=== PATIENT | female | born 1980 | race Two or more races ===

== ENCOUNTER 2020-10-09 04:41 | Day surgery (SDC) | payer OTHER ==
[2020-10-07 16:42] VITALS: BMI 21.4
[2020-10-09 10:45] VITALS: TEMP 97.4
[2020-10-09 11:27] VITALS: BP 106/68; PULSE 55
== END 2020-10-09 11:45 | disposition home or self-care (01) ==
LOC: JASU-ENDO 04:41
PROVIDERS: ATTEND Internal Medicine Gastroenterology
PROC: 0DB78ZX Excision of Stomach, Pylorus, Via Natural or Artificial Opening Endoscopic, Diagnostic (ICD-10-PCS; 2020-10-09)
PROC: 0DBH8ZX Excision of Cecum, Via Natural or Artificial Opening Endoscopic, Diagnostic (ICD-10-PCS; principal; 2020-10-09 10:45)
DX: D12.0 Benign neoplasm of cecum (principal); Z86.010 Personal history of colon polyps; R63.4 Abnormal weight loss; Z68.21 Body mass index [BMI] 21.0-21.9, adult; R10.9 Unspecified abdominal pain
CPT/HCPCS: 81025; 88305-TC; 88342-TC

== ENCOUNTER 2020-11-24 15:29 | Emergency (ER) | payer OTHER ==
[2020-11-24 15:47] VITALS: BP 107/74; PULSE 65; TEMP 98.5; BMI 21.1
== END 2020-11-24 18:55 | disposition home or self-care (01) ==
LOC: JER 15:29
DX: R53.1 Weakness (principal)
CPT/HCPCS: 82962; 99283-25

== ENCOUNTER 2021-12-02 10:02 | Emergency (ER) | payer OTHER ==
[2021-12-02 10:19] VITALS: BP 94/62; PULSE 67; TEMP 97.8; BMI 20.8
[2021-12-02 10:51] LABS: HEMATOCRIT 34.1 % (32.4-45.2); HEMOGLOBIN 11.9 G/dL (10.7-15.3); MCH 32.9 pg (25.7-33.7); MCHC 34.8 g/dl (32.0-36.0); MEAN CELL VOLUME 94.7 fl (80-96); MEAN PLT VOLUME 8.1 fl (7.5-11.1); PLATELET COUNT 215.7 10^3/uL (134-434); RDW 13.5 % (11.6-15.6); WHITE BLOOD COUNT 3.7 10^3/uL (4.0-10.8)
[2021-12-02 11:05] LABS: BILIRUBIN,TOTAL 0.6 mg/dl (0.2-1); CALCIUM 9.2 mg/dl (8.5-10); CREATININE 0.9 mg/dl (0.55-1.3); TOT PROT 6.8 g/dl (6.4-8.2)
== END 2021-12-02 12:43 | disposition home or self-care (01) ==
LOC: FER 10:02
DX: R53.83 Other fatigue (principal); Z20.822 Contact with and (suspected) exposure to COVID-19
CPT/HCPCS: 0241U-QW; 36415; 80053; 81003; 84703; 85027; 99283-25

== ENCOUNTER 2021-12-16 23:21 | Emergency (ER) | payer OTHER ==
[2021-12-16 23:32] VITALS: PULSE 60; TEMP 98.2; BMI 20.3
[2021-12-16] MEDS ORDERED: SODIUM CHLORIDE 1,000 ML IV STA (23:46)
[2021-12-17 00:54] LABS: PH,URINE 6.5 (5.0-8.0); URINE APPEARANCE CLEAR; URINE BILIRUBIN NEGATIVE (NEGATIVE); URINE COLOR YELLOW; URINE GLUCOSE (UA) NEGATIVE (NEGATIVE); URINE KETONE NEGATIVE (NEGATIVE); URINE LEUK ESTERASE NEGATIVE (NEGATIVE); URINE NITRITE NEGATIVE (NEGATIVE); URINE PROTEIN NEGATIVE (NEGATIVE)
[2021-12-17 00:56] LABS: BASO % 0.6 % (0-2.0); EOS % 3.1 % (0-4.5); HEMATOCRIT 32.6 % (32.4-45.2); LYMPH % 47.5 % (8-40); MCH 31.4 pg (25.7-33.7); MCHC 33.9 g/dl (32.0-36.0); MEAN CELL VOLUME 92.8 fl (80-96); MONO % 10.4 % (3.8-10.2); NEUT % 38.4 % (42.8-82.8); PLATELET COUNT 208 10^3/uL (134-434); RBC 3.51 M/mm3 (3.60-5.2); RDW 12.4 % (11.6-15.6); WHITE BLOOD COUNT 5.1 K/mm3 (4.0-10.0)
[2021-12-17 01:14] LABS: ALBUMIN 3.6 g/dl (3.4-5.0); BLOOD UREA NITROGEN 11.8 mg/dL (7-18)
[2021-12-17 01:17] LABS: CREATININE 0.7 mg/dL (0.55-1.3)
[2021-12-17 01:19] LABS: TOT PROT 6.5 g/dl (6.4-8.2)
[2021-12-17 01:24] VITALS: BP 96/65; RESP 16
[2021-12-17 02:20] LABS: BILIRUBIN,TOTAL 0.5 mg/dL (0.2-1)
== END 2021-12-17 01:56 | disposition home or self-care (01) ==
LOC: FER 23:21
PROC: 3E0337Z Introduction of Electrolytic and Water Balance Substance into Peripheral Vein, Percutaneous Approach (ICD-10-PCS; principal; 2021-12-16)
DX: K22.0 Achalasia of cardia (principal)
CPT/HCPCS: 36415; 80053; 81003; 85025; 99284-25

== ENCOUNTER 2021-12-24 04:04 | Emergency (ER) | payer OTHER ==
[2021-12-24 04:10] VITALS: BP 101/68; PULSE 62; RESP 16; TEMP 97.9
[2021-12-24] MEDS ORDERED: FAMOTIDINE 20 MG TABLET PO ONE (04:21)
[2021-12-24] MEDS ORDERED: MAG HYDROX/AL HYDROX/SIMETH -MYLANTA- ORAL SUSPENSION PO ONE (04:21)
[2021-12-24] MEDS ORDERED: FAMOTIDINE 20 MG TABLET ONE (04:48)
[2021-12-24] MEDS ORDERED: MAG HYDROX/AL HYDROX/SIMETH 30 ML UNIT-DOSE CUP ONE (04:48)
[2021-12-24 06:00] LABS: BASO % 0.5 % (0-2.0); EOS % 3.3 % (0-4.5); HEMATOCRIT 31.7 % (32.4-45.2); HEMOGLOBIN 10.7 GM/dL (10.7-15.3); LYMPH % 44.7 % (8-40); MCH 31.7 pg (25.7-33.7); MCHC 33.8 g/dl (32.0-36.0); MEAN CELL VOLUME 93.7 fl (80-96); MEAN PLT VOLUME 8.7 fl (7.5-11.1); MONO % 9.9 % (3.8-10.2); NEUT % 41.6 % (42.8-82.8); PLATELET COUNT 166 10^3/uL (134-434); RBC 3.39 M/mm3 (3.60-5.2); RDW 12.2 % (11.6-15.6); WHITE BLOOD COUNT 4.6 K/mm3 (4.0-10.0)
[2021-12-24 06:22] LABS: BLOOD UREA NITROGEN 12.5 mg/dL (7-18); CALCIUM 8.6 mg/dL (8.5-10.1)
[2021-12-24 06:23] LABS: ALBUMIN 3.3 g/dl (3.4-5.0)
[2021-12-24 06:25] LABS: CREATININE 0.8 mg/dL (0.55-1.3)
[2021-12-24 06:27] LABS: BILIRUBIN,TOTAL 0.3 mg/dL (0.2-1); TOT PROT 6.2 g/dl (6.4-8.2)
== END 2021-12-24 07:00 | disposition home or self-care (01) ==
LOC: FER 04:04
DX: R07.9 Chest pain, unspecified (principal)
CPT/HCPCS: 36415; 71045-TC-FY; 80053; 84484; 85025; 93005; 99285-25

== ENCOUNTER 2022-06-26 23:04 | Emergency (ER) | payer OTHER ==
[2022-06-26 23:17] VITALS: BP 96/61; PULSE 73; RESP 16; TEMP 98.7
[2022-06-26] MEDS ORDERED: HYOSCYAMINE SULFATE 0.125 MG *ODT PO ONE (23:27)
[2022-06-27] MEDS ORDERED: SODIUM CHLORIDE 1,000 ML IV ONE (00:01)
[2022-06-27 01:25] LABS: HEMOGLOBIN 11.7 GM/dL (10.7-15.3); MCH 31.4 pg (25.7-33.7); MCHC 33.4 g/dl (32.0-36.0); MEAN CELL VOLUME 94.1 fl (80-96); PLATELET COUNT 217 10^3/uL (134-434); RBC 3.72 M/mm3 (3.60-5.2); RDW 12.5 % (11.6-15.6); WHITE BLOOD COUNT 11.5 K/mm3 (4.0-10.0)
[2022-06-27 01:26] LABS: CALCIUM 8.6 mg/dL (8.5-10.1)
[2022-06-27 01:27] LABS: ALBUMIN 3.6 g/dl (3.4-5.0); BLOOD UREA NITROGEN 10.8 mg/dL (7-18)
[2022-06-27 01:28] LABS: EPI CELLS 6 /uL (0-25.1); HYALINE CASTS 0 /uL (0-3.1); PH,URINE 8.5 (5.0-8.0); URINE APPEARANCE CLEAR; URINE BACTERIA 86 /uL (0-1359); URINE BILIRUBIN NEGATIVE (NEGATIVE); URINE COLOR YELLOW; URINE GLUCOSE (UA) NEGATIVE (NEGATIVE); URINE KETONE NEGATIVE (NEGATIVE); URINE LEUK ESTERASE NEGATIVE (NEGATIVE); URINE NITRITE NEGATIVE (NEGATIVE); URINE PROTEIN NEGATIVE (NEGATIVE); URINE RBC 9 /uL (0-23.9); URINE UROBILINOGEN 0.2 mg/dL (0.2-1.0); URINE WBC 6 /uL (0-25.8)
[2022-06-27 01:30] LABS: CREATININE 0.7 mg/dL (0.55-1.3)
[2022-06-27 01:32] LABS: BILIRUBIN,TOTAL 0.3 mg/dL (0.2-1); TOT PROT 6.7 g/dl (6.4-8.2)
[2022-06-27] MEDS ORDERED: MAGNESIUM CITRATE 300 ML BOTTLE PO ONE (06:04)
[2022-06-27] MEDS ORDERED: MAGNESIUM HYDROX 2400MG/30ML ORAL SUSPENSION 30 ML CUP ONE (06:08)
== END 2022-06-27 06:15 | disposition home or self-care (01) ==
LOC: FER 23:04
PROC: 3E0337Z Introduction of Electrolytic and Water Balance Substance into Peripheral Vein, Percutaneous Approach (ICD-10-PCS; principal; 2022-06-26)
DX: K59.09 Other constipation (principal)
CPT/HCPCS: 0241U-QW; 36415; 74019-TC-FY; 74177-TC; 80053; 81003; 81025; 85027; 99285-25; Q9967

== ENCOUNTER 2024-01-16 17:33 | Emergency (ER) | payer OTHER ==
[2024-01-16 18:17] VITALS: BP 103/78; PULSE 79; RESP 18; TEMP 98.1; BMI 28.3
[2024-01-16] MEDS ORDERED: ALBUTEROL SO4 0.083% IH SOL 2.5 MG/3 ML VIAL.NEB. NEB ONE (18:39)
[2024-01-16] MEDS: ALBUTEROL SO4 0.083% IH SOL 2.5 MG/3 ML VIAL.NEB. NEB ONE (18:41)
== END 2024-01-16 19:04 | disposition home or self-care (01) ==
LOC: FER 17:33
PROC: 3E0F7GC Introduction of Other Therapeutic Substance into Respiratory Tract, Via Natural or Artificial Opening (ICD-10-PCS; principal; 2024-01-16)
DX: J45.20 Mild intermittent asthma, uncomplicated (principal); R06.02 Shortness of breath; R07.89 Other chest pain
CPT/HCPCS: 99283-25